=== PATIENT | male | born 1960 | race Caucasian/White ===

== ENCOUNTER 2019-12-05 08:32 | Observation (INO) ==
[2019-12-05 09:01] LABS: Amphetamine Screen,Urine Negative ng/mL (Cutoff=1000); Barbiturate Screen,Urine Negative ng/mL (Cutoff=200)
[2019-12-05 09:02] LABS: Benzodiazepines Screen,Urine Negative ng/mL (Cutoff=300); Cannabinoid Screen,Urine Negative ng/mL (Cutoff = 50); Cocaine Screen,Urine Negative ng/mL (Cutoff= 300); Opiate Screen,Urine Negative ng/mL (Cutoff=300); Phencyclidine Screen,Urine Negative ng/mL (Cutoff=25)
[2019-12-05 09:16] LABS: Bacteria,Urine Few per hpf (None-Few); Bilirubin,Urine Negative (Negative); Blood,Urine Trace (Negative); Clarity,Urine Clear (Clear); Color,Urine Light-Yellow (Yellow); Glucose,Urine (UA) >=1000 mg/dL (Normal); Ketones,Urine Negative (Negative); Leukocyte Esterase,Urine Negative (Negative); Nitrite,Urine Negative (Negative); PH,Urine 6.5 pH Units (5.0-8.0); Protein,Urine Negative (Neg-Trace); Specific Gravity,Urine 1.022 (1.010-1.025); Urobilinogen,Urine Normal (Normal); WBC,Urine 0-3 per hpf (0-3)
[2019-12-05 09:31] LABS: Basophils % 0.8 %; Hemoglobin 13.6 g/dL (12.9-16.9)
[2019-12-05 09:33] LABS: Acetaminophen < 10 mcg/mL (10-20); BUN/Creatinine Ratio 17 (6-26); Blood Urea Nitrogen 16 mg/dL (6-20); Calcium 8.4 mg/dL (8.6-10.3); Carbon Dioxide 24 mEq/L (23-29); Chloride 104 mEq/L (98-107); Chol/HDL Ratio 5.3 (0-4.9); Cholesterol 144 mg/dL (< 200); Eosinophils # 0.1 K/mcL (0.0-0.6); Ethanol 174 mg/dL (Less than 10); Glucose 391 mg/dL (70-105); HDL Cholesterol 27 mg/dL (40-59); Hematocrit 40.2 % (37.5-50.1); Immature Granulocytes % 0.4 % (0-4); Immature Platelets 2.5 % (1.1-6.1); LDL Cholesterol,Calculated 92 mg/dL (< 100); Lymphocytes % 40.4 %; Mean Corpuscular HGB Conc 33.8 g/dL (31.6-35.5); Mean Corpuscular Hemoglobin 31.6 pg (28.0-33.3); Mean Corpuscular Volume 93.5 fL (83.0-100.0); Mean Platelet Volume 9.8 fL (9.4-12.4); Monocytes # 0.2 K/mcL (0.0-1.3); Monocytes % 9.2 %; Neutrophils # 1.1 K/mcL (1.6-8.9); Osmolality,Calculated 297 (280-300); Potassium 3.7 mEq/L (3.5-5.1); Red Cell Distribution Width 14.6 % (11.5-14.5); Salicylate < 2.5 mg/dL (15.0-30.0); Segmented Neutrophils % 44.2 %; Sodium 135 mEq/L (136-145); Triglycerides 127 mg/dL (< 150); White Blood Count 2.4 K/mcL (4.3-11.1); eGFR For African Americans > 60 (> 60); eGFR For Non-African Americans > 60 (> 60)
[2019-12-05 09:53] LABS: Platelet Count 40 K/mcL (140-400)
[2019-12-05 10:00] LABS: Estimated Average Glucose 220 mg/dl; Hemoglobin A1C 9.3 %
[2019-12-05] MEDS ORDERED: *HR* LORazepam 1 MG TABLET PO ONE (12:08)
[2019-12-05 12:25] LABS: Troponin I 0.03 ng/mL (< 0.04)
[2019-12-05 12:50] LABS: Magnesium 1.7 mg/dL (1.6-2.6); Phosphorous 3.4 mg/dL (2.7-4.5)
[2019-12-05] MEDS ORDERED: Ondansetron 4 MG/2 ML VIAL IVP PRN (13:29)
[2019-12-05] MEDS ORDERED: Naloxone 0.4 MG/ML INJ IVP PRN (13:29)
[2019-12-05] MEDS ORDERED: *HR* LORazepam 2 MG/ML VIAL IVP PRN ×2 (13:32)
[2019-12-05] MEDS ORDERED: *HR* Dextrose 50 % in Water (Vial) 50 ML VIAL IVP PRN (14:35)
[2019-12-05] MEDS ORDERED: D5% in Water 1,000 ML IVC PRN (14:35)
[2019-12-05] MEDS ORDERED: Dextrose Gel 15 GM/37.5 ML TUBE PO PRN ×2 (14:35)
[2019-12-05] MEDS: Insulin LISPRO 300 UNITS/3 ML VIAL SQ SCH ×3 (16:52→20:10)
[2019-12-05] MEDS: 0.9 % Sodium Chloride 1,000 ML IVC SCH (17:51)
[2019-12-05] MEDS: Thiamine (B-1) 100 MG, Folic Acid 1 MG, MVI, adult with vitamin K 10 ML in 0.9 % Sodi... IVPB SCH (17:51)
[2019-12-05] MEDS: lisinopriL 10 MG TABLET PO SCH (17:57)
[2019-12-05] MEDS ORDERED: Acetaminophen 325 MG TABLET PO PRN (20:55)
[2019-12-06] MEDS: 0.9 % Sodium Chloride 1,000 ML IVC SCH (03:19)
[2019-12-06 06:16] LABS: Basophils % 1.1 %; Red Blood Count 4.51 M/mcL (4.19-5.50)
[2019-12-06 06:18] LABS: Eosinophils # 0.1 K/mcL (0.0-0.6); Eosinophils % 4.7 %; Hematocrit 42.1 % (37.5-50.1); Hemoglobin 14.2 g/dL (12.9-16.9); Immature Granulocytes % 0.4 % (0-4); Immature Platelets 3.6 % (1.1-6.1); Lymphocytes % 26.7 %; Mean Corpuscular HGB Conc 33.7 g/dL (31.6-35.5); Mean Corpuscular Hemoglobin 31.5 pg (28.0-33.3); Mean Corpuscular Volume 93.3 fL (83.0-100.0); Monocytes # 0.2 K/mcL (0.0-1.3); Monocytes % 7.9 %; Red Cell Distribution Width 14.2 % (11.5-14.5); Segmented Neutrophils % 59.2 %; White Blood Count 2.8 K/mcL (4.3-11.1)
[2019-12-06 06:23] LABS: Lymphocytes # 0.8 K/mcL (0.6-4.6); Neutrophils # 1.7 K/mcL (1.6-8.9); Platelet Count 36 K/mcL (140-400)
[2019-12-06 06:39] LABS: BUN/Creatinine Ratio 21 (6-26); Blood Urea Nitrogen 16 mg/dL (6-20); Calcium 8.5 mg/dL (8.6-10.3); Carbon Dioxide 24 mEq/L (23-29); Chloride 101 mEq/L (98-107); Glucose 193 mg/dL (70-105); Magnesium 1.6 mg/dL (1.6-2.6); Osmolality,Calculated 280 (280-300); Phosphorous 2.9 mg/dL (2.7-4.5); Potassium 3.6 mEq/L (3.5-5.1); Sodium 132 mEq/L (136-145); eGFR For African Americans > 60 (> 60); eGFR For Non-African Americans > 60 (> 60)
[2019-12-06] MEDS: Insulin LISPRO 300 UNITS/3 ML VIAL SQ SCH ×4 (09:57→20:40)
[2019-12-06] MEDS: Folic Acid 1 MG TABLET PO SCH (09:57)
[2019-12-06] MEDS: Thiamine (B-1) 100 MG TABLET PO SCH (09:57)
[2019-12-06] MEDS: lisinopriL 10 MG TABLET PO SCH (09:57)
[2019-12-06] MEDS: *HR* LORazepam 2 MG/ML VIAL IVP PRN ×3 (14:20→22:30)
[2019-12-06] MEDS: Thiamine (B-1) 100 MG, Folic Acid 1 MG, MVI, adult with vitamin K 10 ML in 0.9 % Sodi... IVPB SCH (18:26)
[2019-12-06] MEDS ORDERED: QUEtiapine Fumarate 25 MG TABLET PO SCH (21:00)
[2019-12-06] MEDS: Nicotine 21 MG PATCH.TD24 TD SCH (22:29)
[2019-12-07 01:23] LABS: Hemoglobin 14.6 g/dL (12.9-16.9)
[2019-12-07 01:25] LABS: Basophils % 0.7 %; Eosinophils # 0.1 K/mcL (0.0-0.6); Eosinophils % 4.9 %; Hematocrit 43.5 % (37.5-50.1); Immature Platelets 3.8 % (1.1-6.1); Lymphocytes # 0.8 K/mcL (0.6-4.6); Lymphocytes % 26.7 %; Mean Corpuscular HGB Conc 33.6 g/dL (31.6-35.5); Mean Corpuscular Hemoglobin 31.7 pg (28.0-33.3); Mean Corpuscular Volume 94.4 fL (83.0-100.0); Mean Platelet Volume 10.2 fL (9.4-12.4); Monocytes # 0.2 K/mcL (0.0-1.3); Neutrophils # 1.7 K/mcL (1.6-8.9); Red Blood Count 4.61 M/mcL (4.19-5.50); Red Cell Distribution Width 14.4 % (11.5-14.5); Segmented Neutrophils % 59.7 %; White Blood Count 2.9 K/mcL (4.3-11.1)
[2019-12-07 01:26] LABS: Platelet Count 39 K/mcL (140-400)
[2019-12-07 01:43] LABS: Alanine Aminotransferase 31 Units/L (7-52); Albumin 2.6 g/dL (3.5-5.7); Albumin/Globulin Ratio 0.6 (1.1-2.2); Alkaline Phosphatase 162 Units/L (34-104); Aspartate Amino Transferase 54 Units/L (13-39); BUN/Creatinine Ratio 26 (6-26); Blood Urea Nitrogen 19 mg/dL (6-20); Calcium 8.6 mg/dL (8.6-10.3); Carbon Dioxide 22 mEq/L (23-29); Chloride 105 mEq/L (98-107); Globulin 4.3 g/dL (2.4-3.5); Glucose 148 mg/dL (70-105); Magnesium 1.6 mg/dL (1.6-2.6); Osmolality,Calculated 285 (280-300); Potassium 3.7 mEq/L (3.5-5.1); Sodium 135 mEq/L (136-145); Total Protein 6.9 g/dL (6.4-8.9); eGFR For African Americans > 60 (> 60); eGFR For Non-African Americans > 60 (> 60)
[2019-12-07] MEDS: Thiamine (B-1) 100 MG TABLET PO SCH (08:10)
[2019-12-07] MEDS: Folic Acid 1 MG TABLET PO SCH (08:10)
[2019-12-07] MEDS: Nicotine 21 MG PATCH.TD24 TD SCH (08:11)
[2019-12-07] MEDS: Insulin LISPRO 300 UNITS/3 ML VIAL SQ SCH ×2 (08:12→12:04)
[2019-12-07] MEDS ORDERED: lisinopriL 10 MG TABLET PO SCH (09:00)
[2019-12-07 11:10] VITALS: BP 103/60
[2019-12-07] MEDS: *HR* LORazepam 2 MG/ML VIAL IVP PRN (12:09)
== END 2019-12-07 15:33 | disposition home or self-care (01) ==
LOC: EMEROOARM 08:32 → 3ANU 08:32 → SUATTDRO 15:20 → 3ANU 16:41
PROVIDERS: ADMIT Internal Medicine; ATTEND Internal Medicine